=== PATIENT | male | born 1980 | race Caucasian/White ===

== ENCOUNTER 2020-01-19 03:52 | Emergency (ER) | payer OTHER ==
[~2020-01-19] VITALS: Ht 182.9 cm; Wt 88.5 kg
[2020-01-19] MEDS ORDERED: IBUPROFEN 600600 M1 PO (04:58)
[2020-01-19 05:05] VITALS: BP 136/85
== END 2020-01-19 05:06 | disposition home or self-care (01) ==
LOC: ER 03:52
DX: S20.211A Contusion of right front wall of thorax, initial encounter (principal); F17.210 Nicotine dependence, cigarettes, uncomplicated; W22.8XXA Striking against or struck by other objects, initial encounter; Y93.89 Activity, other specified; Y92.89 Other specified places as the place of occurrence of the external cause; Y99.8 Other external cause status

== ENCOUNTER 2020-11-02 00:48 | Emergency (ER) | payer OTHER ==
[~2020-11-02] VITALS: Ht 182.9 cm; Wt 90.7 kg
[~2020-11-02 00:48] MED LIST: IBUPROFEN 600600 M1 PO
[2020-11-02] MEDS ORDERED: IBUPROFEN 800800 M1 PO (03:37)
[2020-11-02] MEDS ORDERED: NORCO 10-325 T1 EACH PO (03:37)
[2020-11-02 03:55] VITALS: BP 136/78
--- NOTE | 2020-11-02 07:13 | EKG ---
[facility] [place] [facility] [place] [address] ELECTROCARDIOGRAM REPORT Name: BAN SHELLEY Room #: [facility]#: [id number] Admission: 11/02/20 Attend Phys: Discharge: 11/02/20 Date of : 76 Report #: [id number] [facility] ED Test Date: 2020-11-02 Test Time: 01:36:25 Pat Name: BAN SHELLEY Department: Room: Gender: [employer] Operator: MPARK : 1980 Requested By: Dane Wood Order Number: [id number] MD: Ru Douglass Measurements Intervals [place] Rate: 101 P: 63 WV: 138 QRS: -69 QRSD: 93 T: 54 QT: 330 QTc: 428 Interpretive Statements Sinus tachycardia Probable left atrial enlargement S1,S2,S3 pattern RSR' in V1 or V2, probably normal variant Baseline wander in lead(s) V2 No previous ECG available for comparison Electronically Signed On 11-02-2020 7:13:27 CDT by Ru Douglass [email or web address] <ELECTRONICALLY SIGNED> By: Ru Douglass MD, [facility] 11/02/20 0713 0136 013 Ru Douglass MD, FACC /EPI
== END 2020-11-02 03:56 | disposition home or self-care (01) ==
LOC: ER 00:48
DX: S46.812A Strain of other muscles, fascia and tendons at shoulder and upper arm level, left arm, initial encounter (principal); I10 Essential (primary) hypertension; F17.200 Nicotine dependence, unspecified, uncomplicated; X50.1XXA Overexertion from prolonged static or awkward postures, initial encounter; Y93.89 Activity, other specified; Y92.89 Other specified places as the place of occurrence of the external cause; Y99.8 Other external cause status